=== PATIENT | male | born 1985 | race Caucasian/White ===

== ENCOUNTER 2018-11-28 21:47 | Emergency (ER) | payer SELFPAY ==
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
== END 2018-11-28 23:00 | disposition home or self-care (01) ==
LOC: JP.ED 21:47
DX: S00.531A Contusion of lip, initial encounter (principal); F17.210 Nicotine dependence, cigarettes, uncomplicated; F41.9 Anxiety disorder, unspecified; F32.9 Major depressive disorder, single episode, unspecified; Y04.8XXA Assault by other bodily force, initial encounter
CPT/HCPCS: 99283